=== PATIENT | male | born 1975 | race Caucasian/White ===

== ENCOUNTER 2020-12-20 19:23 | Emergency (ER) | payer SELFPAY ==
[~2020-12-20] VITALS: Ht 177.8 cm; Wt 79.4 kg
[2020-12-20 19:25] VITALS: BP_SYST 130
--- NOTE | 2020-12-20 19:30 | NUR ---
[facility] Side rails up. Report given to Christy FRANKS.
--- NOTE | 2020-12-20 19:35 | NUR ---
PATIENT BROUGHT IN WITH LASD FOR RIGHT KNEE PAIN, REPORTS FALLING FROM STAIRS. PATIENT UNAWARE OF HOW MANY STEPS HE FEEL. DENIES ANY LOSS OF CONSCIOUSNESS. PATIENT STATES " I HAVE NO PAIN AND IT'S NO BIG DEAL." PAIN 0/10.
--- NOTE | 2020-12-20 19:40 | NUR ---
ER Dr. SIMPSON at bedside examining patient.
[2020-12-20 19:47] VITALS: BP_SYST 130
--- NOTE | 2020-12-20 19:47 | NUR ---
Patient AND [facility] BAD # [id number] given written and verbal discharge instructions and verbalizes understanding. ER MD discussed with patient the results and treatment provided. Patient in stable condition. ID arm band removed. Patient educated on pain management and to follow up with PMD. Pain Scale 0/10 Opportunity for questions provided and answered.
== END 2020-12-20 19:47 ==
LOC: SED 19:23
DX: S80.02XA Contusion of left knee, initial encounter (principal); F17.200 Nicotine dependence, unspecified, uncomplicated; Z88.1 Allergy status to other antibiotic agents; Z86.73 Personal history of transient ischemic attack (TIA), and cerebral infarction without residual deficits; W18.39XA Other fall on same level, initial encounter; Y93.89 Activity, other specified; Y92.89 Other specified places as the place of occurrence of the external cause; Y99.8 Other external cause status
CPT/HCPCS: 99283